=== PATIENT | male | born 1965 | race American Indian/Alaskan Native ===

== ENCOUNTER 2021-01-09 22:21 | Emergency (ER) | payer BC ==
[2021-01-09] MEDS ORDERED: ASPIRIN 325 MG TAB PO ONE (22:55)
[2021-01-09 23:42] LABS: Hematocrit 41.6 % (35.5-45.6); Hemoglobin 14.6 gm/dl (11.8-15.2); Mean Corpuscular HGB Conc 35 % (32-34); Mean Corpuscular Volume 97 fl (84-94); Platelet Count 150 K/mm3 (140-440); Red Blood Count 4.27 M/mm3 (3.65-5.03); Red Cell Distribution Width 12.8 % (13.2-15.2)
[2021-01-09 23:47] LABS: BUN/Creatinine Ratio 16; Blood Urea Nitrogen 16 mg/dL (9-20); Calcium 9.5 mg/dL (8.4-10.2); Hemolysis Index 13
--- NOTE | 2021-01-09 23:57 | XRay Report ---
CHEST 1 VIEW 01/09/2021 10:48 PM INDICATION / CLINICAL INFORMATION: Chest Pain. COMPARISON: None available. FINDINGS: SUPPORT DEVICES: None. HEART / MEDIASTINUM: No significant abnormality. LUNGS / PLEURA: No significant pulmonary or pleural abnormality. No pneumothorax. ADDITIONAL FINDINGS: No significant additional findings. IMPRESSION: 1. No acute findings. Signer Name: David Le MD Signed: 01/09/2021 11:52 PM Workstation Name: [id number]
[2021-01-10] MEDS ORDERED: IBUPROFEN 800 MG TAB PO ONE (00:29)
[2021-01-10] MEDS ORDERED: ALUM-MAG HYDROXIDE-SIMETHICONE 200-200-20MG/5ML ORAL LIQD 30 ML PO ONE (00:29)
--- NOTE | 2021-01-10 00:34 | Emergency Department Report ---
ED Chest Pain HPI - General Chief Complaint: Chest Pain Stated Complaint: CHEST PAIN PUI?: No Time Seen by Provider: 01/09/21 23:23 Source: family Mode of arrival: Ambulatory Limitations: No Limitations - History of Present Illness Initial Comments: Chief complaint: "I have chest pressure on the left side." HPI: This is a 55-year-old male without significant past medical history presents with left sided chest pressure for the past 2 days. Patient has persistent chest pressure not associated with eating or exertion. Patient states that when he moves his arm left arm pain worsens. He denies arm pain, shortness of breath, cough, fever, sweats. He is followed by PCP Dr. Skelton. He had full physical 6 months prior. He did not have elevated blood pressure at that time. Family history notable for father who had heart attack in his 40s. Father also has history of CABG. Patient denies tobacco use. 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 has been working from home. No known sick contacts. MD Complaint: chest pain -: Sudden, days(s) (2 days) Onset: during rest Pain Location: left chest Severity: moderate Severity scale (0 -10): 8 Quality: tightness Improves With: nothing Worsens With: movement (Arm movement) Treatments Prior to Arrival: none - Related Data Allergies Allergy/AdvReac Type Severity Reaction Status Date / Time No Known Allergies Allergy Verified 01/09/21 23:31 Heart Score - HEART Score History: Slightly suspicious EKG: Normal Age: 45-65 Risk factors: 1-2 risk factors Troponin: < normal limit HEART Score: 2 ED Review of Systems ROS: Stated complaint: CHEST PAIN Other details as noted in HPI Comment: All other systems reviewed and negative Constitutional: denies: fever, malaise Respiratory: denies: cough, shortness of breath Cardiovascular: chest pain Gastrointestinal: denies: abdominal pain Genitourinary: denies: urgency ED Past Medical Hx - Past Medical History Previous Medical History?: No - Surgical History Past Surgical History?: No - Social History Smoking Status: Never Smoker Substance Use Type: None ED Physical Exam - General Limitations: No Limitations General appearance: alert, in no apparent distress, other (Patient appears comfortable no distress) - Head Head exam: Present: atraumatic, normocephalic - Eye Eye exam: Present: normal appearance - ENT ENT exam: Present: mucous membranes moist - Neck Neck exam: Present: normal inspection, full ROM - Respiratory Respiratory exam: Present: normal lung sounds bilaterally. Absent: respiratory distress, wheezes, rales, rhonchi, stridor - Cardiovascular Cardiovascular Exam: Present: regular rate, normal rhythm. Absent: systolic murmur, diastolic murmur, rubs, gallop - GI/Abdominal GI/Abdominal exam: Present: soft, normal bowel sounds - Rectal Rectal exam: Present: deferred - Extremities Exam Extremities exam: Present: normal inspection - Back Exam Back exam: Present: normal inspection - Neurological Exam Neurological exam: Present: alert, oriented X3 - Psychiatric Psychiatric exam: Present: normal affect, normal mood - Skin Skin exam: Present: warm, dry, intact, normal color. Absent: rash ED Course Vital Signs 01/09/21 01/09/21 01/09/21 22:56 23:26 23:28 Temperature 98.4 F Pulse Rate 83 77 77 Respiratory 18 20 Rate Blood Pressure 144/92 165/110 [Left] O2 Sat by Pulse 100 98 Oximetry ED Medical Decision Making - Lab Data Result diagrams: 01/09/21 23:08 01/09/21 23:08 Abnormal Lab Results 01/09/21 01/09/21 23:08 23:08 WBC 5.1 RBC 4.27 Hgb 14.6 Hct 41.6 MCV 97 H MCH 34 H MCHC 35 H RDW 12.8 L Plt Count 150 Baso % (Auto) Internet Marketing Director Sodium 140 Potassium 4.1 Chloride 102.8 Carbon Dioxide 25 Anion Gap 16 BUN 16 Creatinine 1.0 Estimated GFR > 60 BUN/Creatinine Ratio 16 Glucose 111 H Calcium 9.5 Troponin T < 0.010 - EKG Data -: EKG Interpreted by Nv EKG shows normal: sinus rhythm, axis, intervals, QRS complexes, ST-T waves Rate: normal - Radiology Data Radiology results: report reviewed Chest 1 view: No acute findings according to radiology impression - Medical Decision Making Chest pain associated with left arm movement. Due to persistent nature I suspect chest wall pain. Heart score 2 however considering patient's family history of father with premature coronary artery disease, outpatient recertification is prudent. Troponin x 2 negative . Patient has normal EKG. Patient does not have any other cardiovascular risk factors. I faxed referral request to [facility]. Also gave patient referral to [facility] for outpatient cardiac risk ratification. I recommend ibuprofen OTC. Patient is discharged home in stable good condition Critical care attestation.: If time is entered above; I have spent that time in minutes in the direct care of this critically ill patient, excluding procedure time. ED Disposition Clinical Impression: Chest wall pain Disposition: DC-01 TO HOME OR SELFCARE Is pt being admited?: No Does the pt Need Aspirin: No Condition: Stable Instructions: Chest Pain (ED), Nonspecific Chest Pain, Adult, [id number] Referrals: BHUMI GARDNER MD [Staff Physician] - 3-5 Days
[2021-01-10 02:27] VITALS: BP 146/100
[2021-01-10 03:03] LABS: Total Cells Counted 100
[2021-01-10 03:05] LABS: Platelet Estimate Consistent w Auto; RBC Morphology Normal
== END 2021-01-10 02:53 | disposition home or self-care (01) ==
LOC: ED 22:21
DX: R07.89 Other chest pain (principal); Z79.899 Other long term (current) drug therapy
CPT/HCPCS: 36415; 71045; 80048; 84484; 85007; 85025; 93005